=== PATIENT | female | born 1960 | race Caucasian/White ===

== ENCOUNTER → 2016-07-20 | Outpatient (CLI) | payer OTHER ==
[~2016-07-20] MED LIST: BISOPROLOL-HCT1 EACH PO; CATAPRES0.2 MG PO; LASIX40 MG PO; NORVASC10 MG PO
== END | disposition disaster alternative care site (69) ==
LOC: GPOC 07-10 15:00 → GRAD 07-13 15:00 → GPOC 07-17 09:00 → GRAD 10:00 → GPOC 12:26
PROC: 0GBH3ZX Excision of Right Thyroid Gland Lobe, Percutaneous Approach, Diagnostic (ICD-10-PCS; principal; 2016-07-20)
DX: E07.89 Other specified disorders of thyroid (principal)